=== PATIENT | female | born 1995 ===

== ENCOUNTER 2017-10-26 11:27 | Emergency (ER) | payer BC ==
[2017-10-26 12:57] VITALS: BP 134/89
--- NOTE | 2017-10-26 13:35 | UC ---
Eye Complaint HPI - HPI Summary HPI Summary: 22 year old female presents with complains of cough and left red eye. - History of Current Complaint Chief Complaint: UCGeneralIllness Stated Complaint: EYE,COUGH Time Seen by Provider: 10/26/17 13:34 Hx Obtained From: Patient Hx Last Menstrual Period: 10/01/17 Onset/Duration: Sudden Onset Timing: Constant Severity Initially: Moderate Severity Currently: Moderate Location of Injury: Conjunctiva Aggravating Factor(s): Nothing Alleviating Factor(s): Nothing - Allergies/Home Medications Allergies/Adverse Reactions: Allergies Allergy/AdvReac Type Severity Reaction Status Date / Time No Known Allergies Allergy Verified 10/26/17 12:57 PMH/Surg Hx/FS Hx/Imm Hx Previously Healthy: Yes - Surgical History Surgical History: Yes Surgery Procedure, Year, and Place: - Family History Known Family History: Positive: None - Social History Alcohol Use: Occasionally Substance Use Type: None Smoking Status (MU): Never Smoked Tobacco - Immunization History Most Recent Influenza Vaccination: not current Review of Systems Constitutional: Negative Skin: Negative Eyes: Drainage, Eye Redness ENT: Negative Respiratory: Cough Cardiovascular: Negative Gastrointestinal: Negative Genitourinary: Negative Motor: Negative Neurovascular: Negative Musculoskeletal: Negative Neurological: Negative Psychological: Negative All Other Systems Reviewed And Are Negative: Yes Physical Exam Triage Information Reviewed: Yes Vital Signs: Initial Vital Signs Temp 36.5 C 10/26/17 12:52 Pulse 94 10/26/17 12:52 Resp 18 10/26/17 12:52 BP 134/89 10/26/17 12:52 Pulse Ox 100 10/26/17 12:52 Vital Signs Reviewed: Yes Eyes: Positive: Conjunctiva Inflamed ENT: Positive: Nasal congestion, Nasal drainage, Sinus tenderness Dental Exam: Normal Neck exam: Normal Neck: Positive: 1 Respiratory: Positive: Rhonchi, Wheezing Cardiovascular Exam: Normal Abdominal Exam: Normal Musculoskeletal Exam: Normal Neurological Exam: Normal Psychological Exam: Normal Skin Exam: Normal Eye Complaint Course/Dx - Differential Dx/Diagnosis Provider Diagnoses: left eye conjunctivitis. cough. sinus congestion Discharge - Discharge Plan Condition: Stable Disposition: HOME Prescriptions: Benzonatate CAP* [Tessalon 100 MG CAP*] 100 mg PO TID PRN #30 cap PRN Reason: Cough Guaifenesin-Codeine [Cheratussin AC] 1 teasp PO BEDTIME PRN #120 ml MDD 5 ml PRN Reason: Cough LoraTADine TAB(NF) [Claritin 10 MG TAB(NF)] 10 mg PO DAILY #30 tab Polymyx/Trimethoprim OPTH* [Polytrim OPHTH*] 1 drop LEFT EYE Q6H #1 btl Patient Education Materials: Acute Cough (ED), Conjunctivitis (ED) Referrals: Gina Viramontes, CREDIT CARD CLERK [Primary Care Provider] -
== END 2017-10-26 13:45 | disposition home or self-care (01) ==
LOC: UCCORT 11:27
DX: H10.32 Unspecified acute conjunctivitis, left eye (principal); R05 Cough; R09.81 Nasal congestion
CPT/HCPCS: 99202; G0463